=== PATIENT | male | born 1975 | race Two or more races ===

== ENCOUNTER 2023-10-24 17:18 | Inpatient (IN) | payer OTHER ==
[~2023-10-24] VITALS: Ht 172.7 cm; Wt 106.6 kg
[2023-10-24 17:54] LABS: BASOPHILS % (AUTO) 0.4 % (0.0-2.0); EOSINOPHILS # (AUTO) 0.1 K/uL (0.0-0.7); EOSINOPHILS % (AUTO) 0.7 % (0.0-7.0); HEMOGLOBIN 14.7 g/dL (12.5-16.3); LYMPHOCYTES # (AUTO) 1.3 K/uL (0.8-4.8); MEAN CORPUSCULAR HEMOGLOBIN 29.2 uug (23.8-33.4); MEAN CORPUSCULAR HGB CONC 33 g/dL (32.5-36.3); MEAN CORPUSCULAR VOLUME 87.6 fL (73.0-96.2); MONOCYTES # (AUTO) 0.9 K/uL (0.1-1.30); NEUTROPHILS # (AUTO) 6.4 K/uL (1.8-8.9); NEUTROPHILS % (AUTO) 73.9 % (38.5-71.5); PLATELET COUNT (AUTO) 142 K/uL (152-348); RED BLOOD CELL COUNT(AUTO) 5.03 MIL/uL (4.06-5.63); RED CELL DISTRIBUTION WIDTH 13.9 % (12.1-16.2); WHITE BLOOD COUNT (AUTO) 8.7 K/uL (3.6-10.2)
[2023-10-24 18:17] LABS: DIFFERENTIAL COMMENT 1
[2023-10-24 18:27] LABS: ALANINE AMINOTRANSFERASE 19 U/L (16-63); ALBUMIN 3.6 g/dL (3.4-5.0); ALKALINE PHOSPHATASE 96 U/L (50-136); ASPARTATE AMINOTRANSFERASE 15 U/L (15-37); BILIRUBIN,TOTAL 0.5 mg/dL (0.2-1.0); CALCIUM 8.5 mg/dL (8.5-10.1); CARBON DIOXIDE 26 mmol/L (21-32); CHLORIDE 102 mmol/L (98-107); CREATININE 1.2 mg/dL (0.6-1.3); GLUCOSE 127 mg/dL (74-106); POTASSIUM 3.8 mmol/L (3.5-5.1); SODIUM SERUM 142 mmol/L (136-145); TOTAL PROTEIN, SERUM 8.4 g/dL (6.4-8.2); UREA NITROGEN, BLOOD 18 mg/dL (7-18)
[2023-10-24 18:32] LABS: ETHANOL < 3 MG/DL (0-10)
[2023-10-24 18:33] LABS: BILIRUBIN,DIRECT < 0.1 mg/dL (0.0-0.2)
[2023-10-24 18:35] LABS: LACTIC ACID 5.3 mmol/L (0.4-2.0)
[2023-10-24 18:52] LABS: MAGNESIUM 2.3 mg/dL (1.8-2.4)
[2023-10-24] MEDS ORDERED: CEFTRIAXONE /D5W 50ML IVPB **ER PYXIS IV ONE (19:10)
[2023-10-24] MEDS: IV NORMAL SALINE 1000 ML BAG IV ONE (19:19)
[2023-10-24] MEDS: CEFTRIAXONE 1 G in IV DEXTROSE 5% 50 ML IV ONE (19:20)
[2023-10-24 20:50] VITALS: BP 156/96; TEMP 97.7; O2SAT 96
[2023-10-24] MEDS ORDERED: DEXTROSE 50% 50 ML DISP.SYRIN IV PRN (21:15)
[2023-10-24] MEDS ORDERED: ONDANSETRON 4 MG/2 ML VIAL IV PRN (21:15)
[2023-10-24] MEDS ORDERED: MAGNESIUM HYDROXIDE 30 ML LIQUID UDC PO PRN (21:15)
[2023-10-24] MEDS ORDERED: ACETAMINOPHEN 325 MG TABLET PO PRN (21:15)
[2023-10-24] MEDS ORDERED: LORAZEPAM 2 MG/1 ML VIAL IV PRN (21:30)
[2023-10-24] MEDS ORDERED: SWABABLE VALVE TRANSFER SET EA MC ONE (22:10)
[2023-10-24] MEDS ORDERED: IOHEXOL 350 100 ML INFUS..BTL ONE (22:10)
[2023-10-24] MEDS ORDERED: IV NORMAL SALINE 250 ML IV ONE (22:10)
[2023-10-24] MEDS ORDERED: IBUP-1953 PO (22:42)
[2023-10-24] MEDS ORDERED: LISI-782 PO (22:42)
[2023-10-24] MEDS ORDERED: LEVE500T20 PO (22:42)
[2023-10-24] MEDS ORDERED: IBUP-1955 PO (22:42)
[2023-10-24] MEDS ORDERED: levETIRAcetam 500 MG/5 ML VIAL IV ONE (22:57)
[2023-10-24] MEDS: levETIRAcetam IV 1,000 MG in IV DEXTROSE 5% 100 ML IV SCH (23:09)
[2023-10-24] MEDS: ENOXAPARIN SODIUM 40 MG/0.4 ML DISP.SYRIN SQ ONE (23:53)
[2023-10-25] VITALS: BP 145/87; TEMP 97.9; O2SAT 95
[2023-10-25] MEDS: hydrALAZINE HCL 20 MG/1 ML VIAL IV PRN (00:42)
[2023-10-25 04:00] VITALS: BP 157/92; TEMP 98.2; O2SAT 94
[2023-10-25] MEDS: BLOOD SUGAR DIAGNOSTIC 1 EACH STRIP VI SCH (06:59)
[2023-10-25 07:14] LABS: BASOPHILS % (AUTO) 0.5 % (0.0-2.0); EOSINOPHILS # (AUTO) 0.1 K/uL (0.0-0.7); EOSINOPHILS % (AUTO) 1.6 % (0.0-7.0); HEMATOCRIT 42.1 % (36.7-47.1); HEMOGLOBIN 14.2 g/dL (12.5-16.3); LYMPHOCYTES # (AUTO) 1.8 K/uL (0.8-4.8); LYMPHOCYTES % (AUTO) 21.5 % (20.5-51.5); MEAN CORPUSCULAR HEMOGLOBIN 29.4 uug (23.8-33.4); MEAN CORPUSCULAR HGB CONC 34 g/dL (32.5-36.3); MEAN CORPUSCULAR VOLUME 87.2 fL (73.0-96.2); MONOCYTES # (AUTO) 0.8 K/uL (0.1-1.30); MONOCYTES % (AUTO) 9.3 % (0.0-11.0); NEUTROPHILS # (AUTO) 5.5 K/uL (1.8-8.9); NEUTROPHILS % (AUTO) 67.1 % (38.5-71.5); PLATELET COUNT (AUTO) 135 K/uL (152-348); RED BLOOD CELL COUNT(AUTO) 4.83 MIL/uL (4.06-5.63); RED CELL DISTRIBUTION WIDTH 13.6 % (12.1-16.2); WHITE BLOOD COUNT (AUTO) 8.3 K/uL (3.6-10.2)
[2023-10-25 07:21] LABS: DIFFERENTIAL COMMENT 1
[2023-10-25 07:33] VITALS: BP 145/99; TEMP 98.6; O2SAT 96
[2023-10-25 07:34] LABS: MAGNESIUM 2.4 mg/dL (1.8-2.4); POTASSIUM 3.3 mmol/L (3.5-5.1)
[2023-10-25] MEDS: LISINOPRIL 5 MG TABLET PO SCH (08:47)
[2023-10-25] MEDS: POTASSIUM CHLORIDE 20 MEQ TAB.PRT.SR PO ONE (11:09)
[2023-10-25 11:41] VITALS: BP 140/87; TEMP 98; O2SAT 94
[2023-10-25] MEDS: INSULIN REGULAR, HUMAN 300 UNIT/3 ML VIAL SQ PRN (12:18)
[2023-10-25] MEDS ORDERED: LEVE1000 PO (13:57)
[2023-10-25] MEDS ORDERED: LISI-782 PO (13:57)
[2023-10-25 15:41] VITALS: BP 139/88; TEMP 98.8; O2SAT 98
[2023-10-25] MEDS ORDERED: ENOXAPARIN SODIUM 40 MG/0.4 ML DISP.SYRIN SQ SCH (21:00)
== END 2023-10-25 17:20 | disposition home or self-care (01) | DRG 53 ==
LOC: ER 17:21 → TELE3 20:34
PROVIDERS: ADMIT Nurse Practitioner Acute Care; ATTEND Nurse Practitioner Acute Care
DX: G40.909 Epilepsy, unspecified, not intractable, without status epilepticus (principal); D68.59 Other primary thrombophilia; E87.20 Acidosis, unspecified; E66.01 Morbid (severe) obesity due to excess calories; Z68.35 Body mass index [BMI] 35.0-35.9, adult; Z87.820 Personal history of traumatic brain injury; I16.0 Hypertensive urgency; I10 Essential (primary) hypertension; G89.29 Other chronic pain; M25.511 Pain in right shoulder; E11.9 Type 2 diabetes mellitus without complications; Z79.899 Other long term (current) drug therapy; R00.0 Tachycardia, unspecified; G93.89 Other specified disorders of brain; S02.11 Fracture of occiput; X58.XXXD Exposure to other specified factors, subsequent encounter
CPT/HCPCS: 36415; 70450; 71045; 71275; 83605; 83735; 84100; 84484; 85025; 87040; 93005; G0378; G0480; J0360; J0696; J1650; J1815; J1953; J7040; Q9967